=== PATIENT | male | born 1960 | race Caucasian/White ===

== ENCOUNTER → 2017-06-30 | Outpatient (CLI) | payer BC ==
[~2017-06-30] VITALS: Ht 170.2 cm; Wt 90.9 kg
[~2017-06-30] MED LIST: ADVIL200 MG PO; ALEVE 220MG220 MG PO
[2017-06-30 12:07] VITALS: BP 140/89; PULSE 55
[2017-06-30 13:25] VITALS: BP 165/98; PULSE 55
== END ==
LOC: COL.RAD 11:42
DX: M54.16 Radiculopathy, lumbar region (principal)
CPT/HCPCS: J3301